=== PATIENT | female | born 1960 | race Caucasian/White ===

== ENCOUNTER 2016-09-17 14:19 | Emergency (ER) | payer OTHER ==
--- NOTE | ~2016-09-17 | EKG ---
PATIENT: RICARDO FUNG UNIT #: [id number] Ventricular Rate: 80 BPM Atrial Rate: 80 BPM P-R Interval: 152 ms QRS Duration: 74 ms Q-T Interval: 414 ms QTC Calculation(Bezet): 477 ms P [place]: 37 degrees Calculated R [place]: 23 degrees Calculated T [place]: 34 degrees Diagnosis Line: Normal sinus rhythm Diagnosis Line: Normal ECG Diagnosis Line: When compared with ECG of 19-APR-2012 06:26, Diagnosis Line: No significant change was found Diagnosis Line: Confirmed by FLAVIA PELLETIER MD ([id number]) on 09/18/2016 Diagnosis Line: 4:36:45 PM INTERPRETING MD: PRABHU MORALES
--- NOTE | ~2016-09-17 | CR72 ---
[facility] A Service of [facility] & [facility] RADIOLOGY TEXT RESULTS PATIENT: RICARDO FUNG LOCATION: [facility] : 58 UNIT #: [id number] AGE: [address]: Vivek Benton MD SEX: F ORDER DR: [id number] [facility] [address] [place], [place] [address] [id number] E MR#: [id number] Acc #: [id number] NAME: RICARDO FUNG : 1960 SEX: F STUDY DATE/TIME: 09/17/2016 14:27 UNIT: [facility] ROOM: STUDY DESCRIPTION: CR Chest Single View Portable Attending Physician: Vivek Benton M.D. Ordering Physician: Vivek Benton M.D. Primary Care Physician: Anup Arechiga M.D. MEDICAL IMAGING REPORT This report is preliminary unless electronic signature is present EXAM Single view of the chest dated 09/17/2016. COMPARISON Single view of the chest dated 03/08/2015. HISTORY Extreme shortness of air for a week. FINDINGS Single view of the chest was obtained. There is borderline size heart to mild cardiomegaly, stable. Lungs are well-aerated. No significant acute cardiopulmonary disease. Bones are relatively normal. Dictated by... Enoc Ellis M.D. THIS IS AN ELECTRONICALLY VERIFIED REPORT Enoc Ellis M.D. at 09/19/2016 1:51 PM CPR/tmw TD: 09/17/2016 15:27 JOB #: [id number] MEDICAL IMAGING REPORT Page 1 of 1 COPY
--- NOTE | ~2016-09-17 | CT2 ---
[facility] A Service [facility] RADIOLOGY TEXT RESULTS PATIENT: RICARDO FUNG LOCATION: [facility] : 58 UNIT #: [id number] AGE: [address]: Vivek Benton MD SEX: F ORDER DR: [id number] [facility] [address] [place], [place] [address] [id number] E MR#: [id number] Acc #: [id number] NAME: RICARDO FUNG. : 1960 SEX: F STUDY DATE/TIME: 09/17/2016 16:52 UNIT: [facility] ROOM: STUDY DESCRIPTION: CT Abd and Pelv W Cont Attending Physician: Vivek Benton M.D. Ordering Physician: Vivek Benton M.D. Primary Care Physician: Anup Arechiga M.D. MEDICAL IMAGING REPORT This report is preliminary unless electronic signature is present EXAM CT abdomen and pelvis with oral and IV contrast HISTORY Abdomen distension for 2 weeks. Abdomen pain. TECHNIQUE This CT exam was performed with one or more of the following radiation dose reduction techniques: automatic control, adjustment of mA and/or kV according to patient size, and iterative reconstruction. FINDINGS CT abdomen and pelvis was performed with oral and IV contrast. CT ABDOMEN: Mild diffuse fatty infiltration of the liver. Small stones or sludge layering in the dependent gallbladder. No gallbladder distension. No biliary dilatation. Mild splenic enlargement measuring close to 14 cm in length. The pancreas, right kidney, and adrenal glands are normal. Incidental 2.7 cm cyst medial mid-left kidney. Normal caliber abdominal aorta. No adenopathy. CT PELVIS: Hysterectomy. The adnexa are unremarkable. Urinary bladder is normal. No bowel dilatation. IMPRESSION 1. No acute findings in the abdomen or pelvis. 2. Fatty infiltration of the liver. 3. Small gallstones versus dense sludge layering in the dependent gallbladder. No biliary dilatation or gallbladder distension. 4. Mild splenic enlargement measuring close to 14 cm in length. Dictated by... [facility] A Service of [facility] RADIOLOGY TEXT RESULTS PATIENT: RICARDO FUNG [id number] 58 UNIT #: [id number] AGE: [address]: Vivek Benton MD SEX: F ORDER DR: Saul Wallis M.D. THIS IS AN ELECTRONICALLY VERIFIED REPORT Saul Wallis M.D. at 09/17/2016 11:25 PM DFL/sanchez TD: 09/17/2016 22:05 JOB #: [id number] MEDICAL IMAGING REPORT Page 1 of 1 COPY
[~2016-09-17 14:19] MED LIST: ALBUTEROL17 GM INH; CENTRUM SILVER PO; CENTRUM SILVER1 EAC3 PO; CETIRIZINE HCL10 MG PO; CITALOPRAM HBR40 MG PO; CLIMARA 0.1 MG0.1 MG EXT; DARVOCET-N 1001 TAB PO; FAMOTIDINE PO; FLOVENT HFA12 GM INH; HYDROXYZINE HCL25 M1 DOB; LORTAB 5/500 TA1 TA1 PO; MONTELUKAST SOD10 MG PO; PHENERGAN DM1 ML PO; PREDNISONE; PREDNISONE10 MG PO; PREMARIN0.625 MG PO; SPIRIVA18 MCG INH; SYMBICORT INH; VOLTAREN75 MG PO; ZOLOFT PO
[2016-09-17 15:24] LABS: POC - CKMB <1.0 ng/mL (0.0-7.9); POC - TROPONIN <0.05 ng/mL (<=0.05)
[2016-09-17 15:39] LABS: BASOPHIL% 0.4 % (0-2.5); EOSINOPHIL# 0.2 X10e3 (0-0.7); EOSINOPHIL% 2.4 % (0.0-7.0); HEMATOCRIT 37.2 % (35.0-45.0); HEMOGLOBIN 11.8 gm/dL (12.0-16.0); LYMPHOCYTE# 1.4 X10e3 (1.0-3.5); LYMPHOCYTE% 17.7 % (17.0-45.0); MEAN CELL VOLUME 76.9 FL (83-96); MEAN CORPUSCULAR HEMOGLOBIN 24.5 PG (28-34); MEAN CORPUSCULAR HGB CONC 31.8 g/dL (30-36); MONOCYTE# 0.4 X10e3 (0-1.0); NEUTROPHIL% 74.5 % (40-75); PLATELET COUNT 208 X10e3 (140-420); RED BLOOD COUNT 4.84 X10e (3.90-5.30); RED CELL DISTRIBUTION WIDTH 14.5 % (11.0-15.5); WHITE BLOOD COUNT 8.1 X10e3 (4.0-10.5)
[2016-09-17 15:44] LABS: DIFF IND NO
[2016-09-17 16:14] LABS: ALBUMIN SERUM 3.3 g/dL (3.5-5.0); ALKALINE PHOSPHATASE 93 U/L (32-92); ALT (SGPT) 12 U/L (10-40); AST (SGOT) 11 U/L (10-42); BILIRUBIN,TOTAL 0.5 mg/dL (0.2-2.0); BLOOD UREA NITROGEN 9 mg/dL (9-23); CALCIUM SERUM 8.6 mg/dL (8.4-10.2); CARBON DIOXIDE 27 mmol/L (22-31); CHLORIDE 102 mmol/L (100-111); CREATININE SERUM 0.5 mg/dL (0.6-1.4); GLOM FILT RATE Estimated 108.2 mL/min (>60); GLUCOSE FASTING 91 mg/dL (70-110); POTASSIUM 3.7 mmol/L (3.5-5.1); PROTEIN TOTAL SERUM 6.5 g/dL (6.0-8.3); SODIUM 138 mmol/L (135-145)
[2016-09-17 16:16] LABS: BILIRUBIN, DIRECT <0.1 mg/dL (0.0-0.2); BILIRUBIN,INDIRECT 0.4 mg/dL (0.0-0.9)
[2016-11-04] MEDS ORDERED: [UNRECOGNIZED DRUG - REMARK] (10:51)
[2016-11-04] MEDS ORDERED: STIOLTO RESPIMAT4 GM (10:51)
[2016-11-04] MEDS ORDERED: FUROSEMIDE (11:05)
== END 2016-09-17 19:13 | disposition home or self-care (01) ==
LOC: CED 14:19
PROVIDERS: Emergency Medicine
DX: K59.00 Constipation, unspecified (principal); J44.9 Chronic obstructive pulmonary disease, unspecified; F41.9 Anxiety disorder, unspecified; Z90.710 Acquired absence of both cervix and uterus; Z79.899 Other long term (current) drug therapy
CPT/HCPCS: 36415; 71010; 74177; 80048; 80076; 82553; 84484; 85025; 93005; 96374; 96375; 99284; J2270; J2405; Q9967

== ENCOUNTER → 2016-10-05 | Outpatient (CLI) | payer OTHER ==
[~2016-10-05] MED LIST changes: +FUROSEMIDE; +STIOLTO RESPIMAT4 GM; +[UNRECOGNIZED DRUG - REMARK]
== END | disposition home or self-care (01) ==
LOC: CECH 10:36
DX: E66.01 Morbid (severe) obesity due to excess calories (principal); R60.0 Localized edema
CPT/HCPCS: 93306

== ENCOUNTER → 2016-11-04 | Day surgery (SDC) | payer OTHER ==
--- NOTE | ~2016-11-04 | OR ---
Unit #: [id number] #: [id number] Patient: RICARDO FUNG [id number] [address] [place], [place] [address] [id number] O MR#: [id number] NAME: RICARDO FUNG ROOM: Date of Procedure: 11/04/2016 Admission Date: 11/04/2016 Surgeon: Jairo Russo III, M.D. : 1960 Attending Physician: Jairo Russo III, M.D. Primary Care Physician: Anup Arechiga M.D. OPERATIVE REPORT PREOPERATIVE DIAGNOSES Epigastric pain and constipation. POSTOPERATIVE DIAGNOSES Mild gastritis near the cardia and two small colon polyps one at the hepatic flexure and one at the transverse colon. PROCEDURE PERFORMED Esophagogastroduodenoscopy with biopsy and colonoscopy to cecum with biopsy x2. ANESTHESIA MAC. SPECIMENS Antrum was sent for NELLI testing. The cardia was sent for pathology, and then two separate colon polyps were sent to Pathology. COMPLICATIONS None apparent. INDICATIONS FOR PROCEDURE This is a 55-year-old lady, who presented today for evaluation of constipation and epigastric pain. She is to undergo upper and lower endoscopy. DESCRIPTION OF PROCEDURE After consent was obtained, the patient was brought to the endoscopy suite and placed in the left lateral decubitus position. I titrated the above sedation and I passed an EGD scope easily into the esophagus under direct visualization. She had normal peristalsis. No evidence of any erosions or esophagitis. There was no hiatal hernia seen. She did have some gastritis near the cardia. Esol Teacher biopsies of that were obtained. I also took a biopsy of the antrum for NELLI testing. Otherwise, I did not see any other ulcerations or masses within the stomach. The pylorus was patent and the first and second portions of the duodenum appeared normal. I then obtained biopsy specimen of the antrum for NELLI testing. The scope was retroflexed within the cardia, again just a gastritis was seen. No hiatal hernia was visualized. The scope was straightened and then withdrawn. I then performed a rectal exam and did not feel any masses. The scope was placed within the rectal vault. Air was insufflated. I navigated the scope all the way to the cecum without any difficulty. She Unit #: [id number] #: [id number] Patient: RICARDO FUNG had normal mucosa. No evidence of any diverticular disease. She did have two small benign-appearing polyps, one at the hepatic flexure and one at the transverse colon. They were both cold biopsied and removed. They were sent labeled separately to Pathology. The scope was retroflexed within the rectum and no other abnormalities were seen. The scope was then carefully withdrawn. The patient tolerated the procedure without any problems and returned to the recovery room in stable condition. Dictated by... Jairo Russo III, M.D. VCL/pino TD: 11/05/2016 17:23 JOB #: [id number] CC: Anup Arechiga M.D. OPERATIVE REPORT Page 1 of 1 X Jairo Russo III, MD PROCEDURE OPERATIVE NOTE
== END | disposition home or self-care (01) ==
LOC: COPS 10:37
DX: K63.5 Polyp of colon (principal); K29.50 Unspecified chronic gastritis without bleeding; K59.09 Other constipation; J44.9 Chronic obstructive pulmonary disease, unspecified; F32.9 Major depressive disorder, single episode, unspecified; G47.30 Sleep apnea, unspecified; E66.01 Morbid (severe) obesity due to excess calories; Z68.43 Body mass index [BMI] 50.0-59.9, adult; Z87.01 Personal history of pneumonia (recurrent); Z87.891 Personal history of nicotine dependence; Z80.3 Family history of malignant neoplasm of breast; Z80.0 Family history of malignant neoplasm of digestive organs; Z90.49 Acquired absence of other specified parts of digestive tract; Z90.710 Acquired absence of both cervix and uterus; Z98.890 Other specified postprocedural states
CPT/HCPCS: 87077; 88305; 88312